=== PATIENT | female | born 1945 | race Caucasian/White ===

== ENCOUNTER 2019-11-12 03:29 | Outpatient (CLI) | payer MEDICARE, SELFPAY ==
--- NOTE | 2019-11-12 13:00 | NS.NUTBLAN_ITS ---
Thank you for consult for Natasha Davis for Medical Nutrition Therapy for Obesity as evidenced by BMI 33. Natasha reports gaining > 25 lbs in last year. She attributes this to her inability to cook, shop due to head injury last year. has been doing most of meal prep and they have started to increase their reliance on convenience foods. Diet Recall supports this. Natasha reports decreased activity as well but starting to tolerate more walking. Nutritional Diagnosis includes obesity, excessive energy intake, lack of physical activity. Intervention: educated Natasha on general Healthful Mediterranean Diet Nutrition Therapy ([facility] Nutrition Care Manual) as she enjoys cooking and now able to stand for longer periods of time and will start to take over meal prep/shopping. Provided Natasha written material and sample meal plan. Her motivation is high and I expect her to make positive changes to her health. Goal is for a 10% weight loss (20 lbs) every 90 days until reaches goal weight of 160 lbs. She is also asked to email creative services writer a 3 day meal record in 3 weeks so I can review her choices and adjust meal plan as needed. She is also dedicated to increase her activity, either in local pool or walking in house/outside. Plan: 1. Natahsa will be in charge of food prep/shopping and she will reduced her reliance on simple carbohydrates and increase intake of vegetables, beans, lean protein. 2. Natasha will exercise daily: 30 min on exercise bike, 30 min of walking 6 times a week 3. Weight loss goal is 20 lbs in 90 days - January 2020 4. follow up as needed
== END 2019-11-12 03:49 ==
PROVIDERS: PCP Nurse Practitioner; Visit Provider Nurse Practitioner
DX: E66.01 Morbid (severe) obesity due to excess calories (principal); Z71.3 Dietary counseling and surveillance
CPT/HCPCS: 97802

== ENCOUNTER → 2021-01-19 10:30 | Outpatient (BNVA) | payer MEDICARE, SELFPAY | PROVIDERS: PCP Nurse Practitioner; Referring Provider Nurse Practitioner; Visit Provider Physical Therapy Assistant | DX: Z12.11 Encounter for screening for malignant neoplasm of colon (principal); I10 Essential (primary) hypertension ==

== ENCOUNTER 2021-03-03 09:11 | Day surgery (SDC) | payer MEDICARE, SELFPAY ==
--- NOTE | 2021-03-02 21:08 | HPE_ITS ---
Date of service: 03/03/21 Time of Service: 09:00 Assessment and Plan Assessment and plan (1) Screening for colon cancer: Status: Acute Assessment and plan: Plan:Colonscopy Th ept understands that they need to do a bowel prep and the importance of hydration during this. The patient understands there is a theuraretical risk of renal failure. For healthy patients we use Miralax For anyone with renal concerns- GoLytely will be used. Plavix and coumadin will need to be held except in unusual circumstances. patient in A. Fib do not need to be bridged with Lovenox or on CVA prophylaxis. A baby ASA can be continued but full dose ASA needs to be stopped for 10 days prior to the procedure. A complete H & P is required with in 30 days of the procedure. MAC is used for the colonoscopy. Colonoscopy does not require antibiotics prophylaxis. Risks: Informed consent is obtained for the procedural (explained in simple layman's terms that the pt and/or family could understand) explaining risks vs benefits and alternatives to the procedure and consequences if we do not do the procedure and need/rational for the procedure. Risks include but are not limited to:bleeding, infection, perforation of colon. This would necessitate emergency surgery to repair the damage w/ possible ostomy; and other associated complications w/ the required surgery. Also complications of anesthesia including aspiration,MD/CVA/. I discussed with the patient would they could expect during the procedure, post procedure and recovery time and risks. The patient understands that they need to have a ride home after the procedure. The patient was given all this information in writing and expressed understanding. Thank you for allowing me to participate in the care of this Patient. A copy of the Endoscopy report will be forwarded to your office. If there are any questions or concerns please feel free to contact my office History of Present Illness Consults Consult date: 03/03/21 Narrative: 75 y/o female with history of HTN presents for colonoscopy screening pre-op. Her last screening was in 2010, which was unremarkable. She denies a family history of colon cancer. She denies any changes in bowel habits including bloody or black tarry stools, abdominal pain, diarrhea or constipation. She denies constitutional symptoms. Denies use of marijuana or any other recreational or illegal drugs. Pt notes about 2-3 yrs should had an episode of diarrhea that lasted for about a month adn than went away. No etiology for this could be defined. There was no travel/camping/she was told it was not diverticulitis. About a year ago she had a similar episode. Ever since that time her stools have changed. They have been more on the soft side. She is not had any weight loss. She is not had any bleeding. She denies chest pain, palpitations, dyspnea or dyspnea with exertion. She bikes and walks for 30-45 mins 4-5 times/wk. She denies prior history or family history of adverse reactions or complications with anesthesia. The patient denies any history of stroke, MD, seizures, bleeding or clotting disorders. She has implanted metal in her right knee and right hip. She did complete a bowel prep. The effluent is clear yellow. She denies any abdominal pain or cramping. She denies any nausea and vomiting. She denies any chest pain or shortness of breath. She denies any cough. She denies any fever or chills. She denies any Covid-like symptoms. All questions answered and she is stable for the procedure today. Review of Systems All systems reviewed & are unremarkable except as noted in HPI and below PFSH Medical History Concussion 2018May 02 Hyperlipidemia (~03/2019) Hypertension (~06/2017) Insomnia (~07/2017) Osteoarthritis (~11/2017) Primary basal cell carcinoma (BCC) (~11/2017) sees derm Dr Parekh [place] [facility] yearly Rotator cuff syndrome of left shoulder (~06/2017) resolved post surgery Surgical History (Updated 03/03/21 @ 11:03 by Johanna Quezada) H/O section History of knee replacement Right knee History of right hip replacement S/P shoulder surgery left shoulder August 2017 total replacement right shoulder February 2019 total replacement [facility] S/P tonsillectomy Family History Mother , age 90 Hypertension Stroke Father , age 77 Heart disease Hyperlipidemia Hypertension Sister Depression Heart disease Hyperlipidemia Hypertension Substance abuse Brother , age 48 Alcohol abuse Heart disease Hyperlipidemia Hypertension Son No problems noted. Maternal Grandfather No problems noted. Paternal Grandfather No problems noted. Maternal Grandmother , age 97 Heart disease Paternal Grandmother No problems noted. Social History Smoking/Tobacco Use Status: Former Tobacco Use tobacco type: cigarettes Quit Date: 09/30/69 Tobacco: How many years used: 5 Second Hand Exposure: Yes Smoking risk assessment performed?: Yes Alcohol Intake: current Alcohol Intake frequency: a few times a week Alcohol type: beer and wine Drug use: Never Substance use type: does not use Caregiver/Support person: No Household members: spouse Housing: house Communication Needs: None Do you need help understanding health information?: Rarely Pets and animals: Yes Pets and animals: cat(s), horse(s) and farm animals Sexually active: No Do you think of yourself as: straight/heterosexual Current gender identity: female What is your relationship status?: How often do you talk on the phone with friends or family?: three or more times per week How often do you get together with friends or relatives?: once per week How often do you attend sikhism or shinto services?: 4 or more times per year Do you belong to any clubs or organized social groups?: yes Panel score (0-1 are the most socially isolated patients): 4 What type of physical activity do you participate in: walking, bicycling, other Details: stationarey bike, hand weights and yoga Duration: 45-60 minutes/day Frequency: 5-6 times per week Yumiko/Anglican: Other Special yumiko needs: No Seatbelt use: always Helmet use: Yes Helmet use: always Drive intox or ride w/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 Do you feel safe at home: Yes Do you feel safe in your relationship?: Yes Meds Allergies and Home Medications Allergies Allergy/AdvReac Type Severity Reaction Status Date / Time hydromorphone Allergy Intermediate Skin Rash Verified 03/03/21 09:40 oxycodone AdvReac Intermediate [place]/Vomi Verified 03/03/21 09:40 ting Home Medications Medication Instructions Recorded Confirmed Type lisinopril 20 1 tab PO DAILY 07/28/19 03/03/21 History mg-hydrochlorothiazide 25 mg tablet aspirin 81 mg tablet,delayed 81 mg PO DAILY 01/19/21 03/03/21 History release cholecalciferol (vitamin D3) 10 10 mcg PO BID tab 01/19/21 03/03/21 History mcg (400 unit) tablet coenzyme Q10 10 mg capsule 10 mg PO ONCE 01/19/21 03/03/21 History glucosamine HCl 500 mg tablet 500 mg PO DAILY 01/19/21 03/03/21 History multivitamin 1 tab PO DAILY 01/19/21 03/03/21 History omega-3 fatty acids 1,000 mg 1,000 mg PO DAILY 01/19/21 03/03/21 History capsule vitamin B complex 1 cap PO DAILY 01/19/21 03/03/21 History bisacodyl 5 mg tablet,delayed 5 mg PO ONCE #4 tab 01/20/21 03/03/21 Rx release polyethylene glycol 3350 17 17 g PO ONCE #238 g 01/20/21 03/03/21 Rx gram/dose oral powder Exam Const General: cooperative, healthy appearing, comfortable, no acute distress, well developed and well groomed Nutritional Appearance: average body habitus and well nourished Orientation: alert, awake and oriented x3 HENMT Head: normal to inspection, normocephalic and atraumatic Ears: hearing grossly normal bilaterally and external ears normal General nose exam: external nose normal Face and sinus: normal facial exam and sinuses nontender Mouth: oral mucosae normal, lip normal, tongue normal and moist mucous membranes Teeth and gingiva: dentition normal Eyes General: appearance normal, both eyes and all related structures Conjunctivae: conjunctivae normal Sclera: sclerae normal Pupils: PERRL Neck Neck: normal visual inspection and full ROM Chest Chest: normal inspection of the chest Resp Effort & Inspection: normal respiratory effort, able to speak in complete sentences, no cough, no nasal flaring, not tachypneic and no use of accessory muscles Auscultation: clear to auscultation bilaterally, no rales, no rhonchi and no wheezes Cardio Jugular venous pressure: no JVD Rate: regular rate Rhythm: regular rhythm GI Inspection: normal to inspection, no edema and non-distended Palpation: soft, no masses, nontender and No ascites Auscultation: normal bowel sounds Neuro General: patient alert, patient oriented x3, oriented, gait normal, moves all extremities, no focal motor deficits and CN's II-XI intact bilaterally Cognition: normal cognition Speech: speech normal Gait: normal gait Motor: muscle tone normal throughout Psych Appearance: grossly normal and well kempt Mental Status: mental status grossly normal Speech and Movement: speech and movement normal Affect: normal affect COVID-19 Screening Have you, or household traveled for leisure in last 14 days?: No Had IN PERSON contact w/suspected or confirmed C-19 person: No
[2021-03-03 09:15] VITALS: BP 145/61; PULSE 67; RESP 18; TEMP 36.6; O2SAT 100
[2021-03-03] MEDS: Lactated Ringers 1,000 ML 80 ML IV (09:26)
--- NOTE | 2021-03-03 10:32 | ANES.PREOP_ITS ---
General Info Date of Service Date Performed: 03/03/21 Height: 5 ft 6 in Weight: 96.1 kg Body Mass Index (BMI): 34.2 Surgical Procedure: Operation Date: 03/03/21 09:50 Proposed Procedures Side Surgeon zac Galicia, Meds Allergies and Home Medications Allergies Allergy/AdvReac Type Severity Reaction Status Date / Time hydromorphone Allergy Intermediate Skin Rash Verified 03/03/21 09:40 oxycodone AdvReac Intermediate [place]/Vomi Verified 03/03/21 09:40 ting Home Medication Medication Instructions Recorded lisinopril 20 1 tab PO DAILY 07/28/19 mg-hydrochlorothiazide 25 mg tablet aspirin 81 mg tablet,delayed 81 mg PO DAILY 01/19/21 release cholecalciferol (vitamin D3) 10 10 mcg PO BID tab 01/19/21 mcg (400 unit) tablet coenzyme Q10 10 mg capsule 10 mg PO ONCE 01/19/21 glucosamine HCl 500 mg tablet 500 mg PO DAILY 01/19/21 multivitamin 1 tab PO DAILY 01/19/21 omega-3 fatty acids 1,000 mg 1,000 mg PO DAILY 01/19/21 capsule vitamin B complex 1 cap PO DAILY 01/19/21 bisacodyl 5 mg tablet,delayed 5 mg PO ONCE #4 tab 01/20/21 release polyethylene glycol 3350 17 17 g PO ONCE #238 g 01/20/21 gram/dose oral powder Current Visit Medications: Current Medications Generic Name Dose Route Start Last Admin Trade Name Freq PRN Reason Stop Dose Admin Hyoscyamine Sulfate 0.125 mg 03/02/21 21:07 Hyoscyamine 0.125 Mg Sl/Oral/Chew SL DIRECTED PRN Ringer's Solution 1,000 mls @ 80 mls/hr 03/03/21 06:00 03/03/21 09:26 IV 04/01/21 23:59 80 mls/hr INFUSION ADRIANA Administration IV Miscellaneous Supplies 1 each 03/03/21 06:00 Iv Access IV 04/01/21 23:59 DIRECTED ADRIANA Ondansetron HCl 4 mg 03/02/21 21:07 Ondansetron 4 Mg/2 Ml Vial IVP Q4H PRN PRN Nausea / Vomiting Sodium Chloride 0 ml 03/03/21 06:00 Normal Saline Flush 10 Ml Syr IV 04/01/21 23:59 PRN PRN Sodium Chloride 0 ml 03/03/21 06:00 Normal Saline 10 Ml Vial IJ 04/01/21 23:59 DIRECTED PRN Sterile Water 0 ml 03/03/21 06:00 Water,Injection,Sterile 10 Ml Vial IJ 04/01/21 23:59 DIRECTED PRN PFSH Active Problems Active Problems: Problem Status Onset Code Screening for colon cancer Z12.11 Decreased taste and smell R43.9 Marital dysfunction Z63.0 Low back pain M54.5 Hypertension ~06/2017 I10 Insomnia ~07/2017 G47.00 Osteoarthritis ~11/2017 M19.90 Primary basal cell carcinoma (BCC) ~11/2017 C44.91 Hyperlipidemia ~03/2019 E78.5 Medical History Medical History Concussion 2018May 02 Hyperlipidemia (~03/2019) Hypertension (~06/2017) Insomnia (~07/2017) Osteoarthritis (~11/2017) [facility] basal [facility] ([facility]11/2017[facility] left shoulder (~06/2017) resolved post surgery Surgical History Surgical History H/O section History of right hip replacement S/P shoulder surgery left shoulder August 2017 total replacement right shoulder February [address] [facility] S/P tonsillectomy Tobacco Smoking/Tobacco Use Status: Former Tobacco Use Tobacco: How many years used: 5 Passive smoking exposure: Yes Second hand exposure: Yes Alcohol Alcohol Intake: current Alcohol intake frequency: a few times a week Alcohol type: beer and wine Substance Use Substance use: Never Substance use type: does not use Vital Signs and Lab Results Vital Signs Most Recent Vital Signs in EMR: Most Recent Vital Signs Temp Pulse Resp BP Pulse Ox 36.6 C 67 18 145/61 H 100 03/03/21 09:15 03/03/21 09:15 03/03/21 09:15 03/03/21 09:15 03/03/21 09:15 Lab Results Blood Type / Crossmatch: No Data to Display Complete Blood Count: No Data to Display Complete Metabolic Panel: No Data to Display Liver Function Panel: No Data to Display Coagulation Panel: No Data to Display Cardiac Panel: No Data to Display Arterial Blood Gas: No Data to Display Venous Blood Gas: No Data to Display Pancreas Panel: No Data to Display Thyroid Panel: No Data to Display Infectious Disease: No Data to Display Blood Cultures: No Data to Display Toxicology Panel: No Data to Display Anesthesia Assessment and Plan Anesthesia History Personal History: No History of Anesthesia Complications Family History: No Family History of Anesthesia Complications Exercise Tolerance Exercise Tolerance: Metabolic Equivalents>4 Cardiac & Pulmonary Exam Cardiac Exam: Normal S1/S2 Heart Sounds Pulmonary Exam: Clear Bilateral Breath Sounds Airway Exam Known Difficult Airway: No Mallampati Class: 2 Mouth Opening: Normal (> 3cm) Thyromental Distance: Greater than 3 cm Neck Range of Motion: Full ROM Neck Circumference: Normal Teeth Condition: Normal Dentition ASA Classification ASA Score: ASA 2 Emergency Case?: No NPO Status NPO Status: NPO Clears >2 hours, Solids >8 hours Anesthesia Plan Resuscitation Status: Full Code Anesthesia Technique: General Anesthesia Airway Planned: Natural Airway Monitors Used: Standard Monitors Preoperative Comments:: here for screening colonoscopy.
[2021-03-03 10:44] VITALS: BMI 34.2
--- NOTE | 2021-03-03 11:41 | BOWEL_PTH ---
PATIENT: Natasha Davis LOC: [facility] U#:[id number] AGE/SX: 75/F ROOM: RE03/03/[address]: Fauzia Galicia : 1945 BED: DIS: 03/03/2021 SPEC #: [id number] RECD: 03/03/21 12:27 STATUS: ALBINO REMariposa #: [id number] SHAMA: 03/03/21 11:[address]: Fauzia Galicia DEPT: Surgical Specimen RECD BY: Estelle Arguelles ENTERED: 03/03/21 12:28 SP TYPE: Bowel OTHR DR: Stacey Corrales, PhD BASKET SORTER Tissues: 1 - BIOPSY BOWEL 2 - BIOPSY BOWEL 3 - BIOPSY BOWEL 4 - BIOPSY BOWEL Procedures: GROSS AND MICRO LEVEL 4 Comments: [id number]
[2021-03-03 11:53] VITALS: BP 106/47; PULSE 68; RESP 18; TEMP 36.4; O2SAT 97
--- NOTE | 2021-03-03 11:54 | W.ANESPOSTOP ---
Postoperative Evaluation Date, Time and Location Date Performed: 03/03/21 Time Performed: 11:55 Patient Location: Day Surgery Unit Vital Signs Most Recent Imported Vital Signs: Most Recent Vital Signs Temp Pulse Resp BP Pulse Ox 36.6 C 67 18 145/61 H 100 03/03/21 09:15 03/03/21 09:15 03/03/21 09:15 03/03/21 09:15 03/03/21 09:15 Most Recent Manually Entered Vital Signs: Adult Blood Pressure: 106/47 Heart Rate: 65 Respirations: 16 Oxygen Saturation (%): 99 Temperature (C): 36.4 C Pain Score (0-10 Scale): 0 Assessment Mental Status: Awake (Alert & Oriented to Patient Baseline) Airway and Respiratory Function: Patent airway with normal (patient baseline) respiratory exam Cardiovascular Function: Hemodynamically Stable Hydration Status: Adequately Hydrated Nausea & Vomiting: No Nausea or Vomiting Pain: Pt. Denies Any Pain Peripheral Nerve Block: Patient did not receive a nerve block
[2021-03-03 11:55] VITALS: BP 106/47; PULSE 65; RESP 16; TEMPC 36.4; O2SAT 99
--- NOTE | 2021-03-03 12:15 | ROE_ITS ---
Date of service: 03/03/21 Time of Service: 12:15 Operative Note Operative Note DATE OF PROCEDURE: 03/03/21 PRE-OP DIAGNOSIS: CRC screening/diarrhea POST-OP DIAGNOSIS: same PROCEDURE: w/ bx SURGEON: Fauzia Galicia ANESTHESIA TYPE: General:No Airway Refer to Anesthesia Record ESTIMATED BLOOD LOSS: 1 PATHOLOGY: other Patient was transported to: same day Patient's condition: stable Procedure Description: After informed consent was obtained the patient was taken to the procedure room and placed in a left decubitous position. Monitors were applied and a time out was done. The patients name, date of , procedure, allergies to medications and metal in their body was reviewed. The patient was then sedated. Once sedated and comfortable a rectal exam was done. External exam was normal. Internal exam revealed a normal sphincter tone and no palpable masses. The scope was then introduced and retrofelexed. No internal hemorrhoids were identified. The scope was then advanced to the cecum without difficulty. The TI and appendiceal orifice were identified. The prep was good. The scope was then slowly retracted over 10 minutes back into the rectum. There are no polyps visualized today. The mucosa and vascular pattern appear normal. She does have a few small scattered diverticuli confined to the sigmoid colon. There is no signs of active bleeding or infection.. The scope was removed and the patient was woken up and taken back to Same day surgery in stable condition. The patient tolerated the procedure well and there were no immediate complicati ons. Follow up: The patient the patient does not require any further screening colonoscopies unless they develop changes in bowel habits or other new gastrointestinal complaints.
--- NOTE | 2021-03-03 12:18 | PDOC.DSDIS_ITS ---
Discharge Plan Disposition Patient Disposition: HOME Condition: Good Discharge Details Reason For Visit: colon scope Attending Provider: Fauzia Galicia Primary Care Provider: Stacey Corrales Home Meds and New Rx's Prescriptions: Continued aspirin [Adult Aspirin Regimen] 81 mg tablet,delayed release (DR/EC) 81 mg PO DAILY RF: 0 multivitamin Tablet 1 tab PO DAILY RF: 0 omega-3 fatty acids [Fish Oil Concentrate] 1,000 mg capsule 1,000 mg PO DAILY RF: 0 glucosamine HCl 500 mg tablet 500 mg PO DAILY RF: 0 vitamin B complex Capsule 1 cap PO DAILY RF: 0 cholecalciferol (vitamin D3) 10 mcg (400 unit) tablet 10 mcg PO BID RF: 0 coenzyme Q10 [Co Q-10] 10 mg capsule 10 mg PO ONCE RF: 0 lisinopril-hydrochlorothiazide 20-25 mg tablet 1 tab PO DAILY RF: 0 Discontinued bisacodyl [Dulcolax (bisacodyl)] 5 mg tablet,delayed release (DR/EC) 5 mg PO ONCE Qty: 4 RF: 0 polyethylene glycol 3350 17 gram/dose powder 17 g PO ONCE Qty: 238 RF: 0 Discharge Instructions Additional Instructions: DSU Colonoscopy Post- Op Instructions Instructions for Everyone who is given Anesthesia: For your safety, please do the following for the next twenty-four (24) hours: *Do Not operate a motor vehicle (car, truck, motorcycle, etc.) *Do Not drink alcoholic beverages or use any recreational drugs for the first 24 hours or while taking pain medications. The medications in your body may have a reaction that can be dangerous. *Do Not make any important decisions or sign any important papers. Findings:mild diverticula. no signs of infections. no polyps Follow up: No further routine screening colonoscopies required. 1. No lifting over 20 pounds or strenuous activity for the first 24 hours after your procedure. After 24 hours there are no restrictions on your activity but you may feel fatigued for a few days. 2. After you arrive home you may have a light meal and return to your normal diet as you can tolerate it without feeling sick to your stomach. 3. You may have a bloated, gaseous feeling in your belly (abdomen) after a colonoscopy. Passing gas and belching will help. Walking or lying down on your left side with your knees flexed may relieve the discomfort. Call the office at [phone] (Office) or [phone] (Hospital) right away if you notice any of the following: a.Vomiting of blood or ?coffee ground stools?. b.Rectal bleeding 1Tbsp, blood clots or continuous bleeding. c.Severe belly (abdominal) pain. d.A hard distended belly (abdomen) and an inability to pass gas. 4. Please don?t expect to have a normal BM (bowel movement) for 2-3 days after your procedure. 5. If there are questions regarding the findings of your procedure, please contact your doctor 6. If you are unable to contact your doctor with a problem, contact the hospital at [phone]. 7. Continue all your regular medications unless directed otherwise. I understand the above instructions and have no questions. Signature of Patient or Adult Escort Name of Responsible Adult Escort Signature of Nurse Date/Time Activity:: see above Diet:: see above Discharge Orders Discharge Orders: Discharge Order (Routine); Ordered 03/02/21 Ordered By: Fauzia Galicia Discharge Data Discharge Date/Time-TO BE ENTERED AT DEPARTURE: 03/03/21 13:15 DS: Diagnosis Discharge Diagnosis (1) Diverticula of colon: Status: Acute
[2021-03-03 12:20] VITALS: BP 105/51; PULSE 57; RESP 16; TEMP 36; O2SAT 100
--- NOTE | 2021-03-03 22:41 | W.COLOREPORT ---
Date of service: 03/03/21 Time of Service: 10:00 Colonoscopy Report Date of procedure: 03/03/21 Pre-op diagnosis general: diarrhea/LLQ pain Post-op diagnosis procedure note: other (divertic) Surgeon: Fauzia Galicia Anesthesia Type: General:No Airway Estimated blood loss (mL): 0 Pathology: none sent Complications: None Disposition: same day Prep: Miralax/Dulcolax Retraction Time: 10 Procedure Description: After informed consent was obtained the patient was taken to the procedure room and placed in a left decubitous position. Monitors were applied and a time out was done. The patients name, date of , procedure, allergies to medications and metal in their body was reviewed. The patient was then sedated. Once sedated and comfortable a rectal exam was done. External exam was normal. Internal exam revealed a normal sphincter tone and no palpable masses. The scope was then introduced and retrofelexed. No internal hemorrhoids were identified. The scope was then advanced to the cecum without difficulty. The TI and appendiceal orifice were identified. The prep was good. The scope was then slowly retracted over 10 minutes back into the rectum. There are no polyps visualized today. The mucosa and vascular pattern appear normal. She does have a few small scattered diverticuli confined to the sigmoid colon. There is no signs of active bleeding or infection.. The scope was removed and the patient was woken up and taken back to Same day surgery in stable condition. The patient tolerated the procedure well and there were no immediate complications. Follow up: The patient the patient does not require any further screening colonoscopies unless they develop changes in bowel habits or other new gastrointestinal complaints.
== END 2021-03-03 13:15 | disposition home or self-care (01) ==
PROVIDERS: PCP Nurse Practitioner; Visit Provider Surgery
PROC: 0DJD8ZZ Inspection of Lower Intestinal Tract, Via Natural or Artificial Opening Endoscopic (ICD-10-PCS; CPT 45378; principal; 2021-03-03 09:45)
DX: Z12.11 Encounter for screening for malignant neoplasm of colon (principal); K57.30 Diverticulosis of large intestine without perforation or abscess without bleeding; R19.7 Diarrhea, unspecified
CPT/HCPCS: 45380; 88305; J2001

== ENCOUNTER → 2022-03-21 01:32 | Outpatient (CLI) | payer MEDICARE, SELFPAY ==
--- NOTE | 2022-03-21 07:30 | DI.MAMMO_ITS ---
Exam(s) MAMMO SCREENING EXAM: MAMMO SCREENING CLINICAL HISTORY: screening, Z12.39 TECHNIQUE: Bilateral full field digital CC and MLO mammographic images were obtained with 3D tomosyn thesis and utilizing computer aided detection (CAD). COMPARISON: Available for comparison. FINDINGS: Masses/Architectural Distortion: None seen. Microcalcifications: No suspicious pleomorphic-type are seen. Skin Thickening/Nipple Retraction: None. IMPRESSION: 1. No significant interval change with no specific features of malignancy noted. 2. Unless there is more urgent need, screening mammography is recommended, as per [place] guidelines. BI-RADS Category 1 - Negative Breast Density - Category B - Scattered areas of fibroglandular density Breast density category C or D implies that the patient has dense breast tissue. Dense breast tissue is very common and is not abnormal but dense breast tissue can make it harder to find cancer on a ma mmogram. Also, dense breast tissue may increase their breast cancer risk. This information about the result of the mammogram report was provided to the patient to raise their awareness. Use this report when you speak with the patient about their risks for breast cancer, which includes their family hist ory. At that time, you may recommend for more screening tests (Ultrasound or MRI) as they might be us eful based on their risk. A negative radiographic report should not delay biopsy if a dominant or clinically suspicious mass is present. Up to ten percent of cancers are not identified on mammography. A negative report may reinforce clinical impression. Adenosis and dense breasts may obscure an underlying neoplasm. False positive reports average 6 to 10%. Patient will receive a letter notifying them of these results.
== END ==
PROVIDERS: PCP Nurse Practitioner; Visit Provider Nurse Practitioner
DX: Z12.31 Encounter for screening mammogram for malignant neoplasm of breast (principal)
CPT/HCPCS: 77063; 77067

== ENCOUNTER 2022-05-15 01:32 | Outpatient (CLI) | payer MEDICARE, SELFPAY ==
[2022-05-15 08:22] LABS: Anion Gap 9.7 mmol/L (3-11); BUN 20 mg/dL (7-18); CO2 29.3 mmol/L (21.0-32.0); CREATININE 0.9 mg/dL (0.55-1.02); Calcium 9.4 mg/dL (8.5-10.1); Calculated LDL 122 mg/dL (<100); Chloride 94 mmol/L (98-107); Cholesterol 222 mg/dL (<200); Glucose 114 mg/dL (74-106); HDL Cholesterol 83 mg/dL (40-60); Sodium 133 mmol/L (136-145); Triglyceride 87 mg/dL (<150)
[2022-05-15 08:31] LABS: Hemoglobin A1C 5.8 % (<5.7)
== END 2022-05-15 01:33 | disposition home or self-care (01) ==
PROVIDERS: PCP Nurse Practitioner; Visit Provider Nurse Practitioner
DX: I10 Essential (primary) hypertension (principal); E78.2 Mixed hyperlipidemia; R73.09 Other abnormal glucose
CPT/HCPCS: 36415; 80048; 80061; 83036

== ENCOUNTER 2022-05-15 12:56 | Outpatient (REF) | payer MEDICARE, SELFPAY ==
--- NOTE | 2022-05-15 11:45 | PAPFT_PTH ---
PATIENT: Natasha Davis LOC: [facility] U#:[id number] AGE/SX: 76/F ROOM: RE05/15/[address]: Josette Claudio MD : [id number] BED: DIS: 05/15/2022 SPEC #: [id number] RECD: 05/15/22 14:44 STATUS: ALBINO REQ #: [id number] SHAMA: 05/15/22 11:[address]: Josette Claudio DEPT: [facility] Cytology RECD BY: Kari Villatoro ENTERED: 05/15/22 14:46 SP TYPE: PAPFT OTHR DR: Stacey Corrales, PhD FEATURE WRITER Tissues: 1 - CX/ENDOCX FOR PAP SMEARS Procedures: PAP THIN PREP/[facility]VM Screening Comments: [id number]
== END 2022-05-15 12:57 | disposition home or self-care (01) ==
LOC: LBN 12:56
PROVIDERS: PCP Nurse Practitioner; Visit Provider Obstetrics & Gynecology
DX: Z12.4 Encounter for screening for malignant neoplasm of cervix (principal)
CPT/HCPCS: 88142

== ENCOUNTER 2023-02-06 02:15 | Outpatient (CLI) | payer MEDICARE, SELFPAY ==
[2023-02-06 10:39] LABS: HCT 38.5 % (36.0-46.0); HGB 13.1 g/dL (11.2-15.7); MCH 29.8 pg (27.0-33.0); MCV 88 fL (80-95); MPV 8.2 fL (8.0-11.0); Platelet Count 251 10^3/uL (130-400); RBC 4.39 10^6/uL (3.93-5.22); RDW 12.3 % (11.7-14.6); RDW-SD 39.2 fL
[2023-02-06 11:27] LABS: ALT 32 U/L (14-59); AST 18 U/L (15-37); Albumin 3.6 g/dL (3.4-5.0); Alkaline Phosphatase 94 U/L (46-116); Anion Gap 8.7 mmol/L (3-11); BUN 18 mg/dL (7-18); Bilirubin, Total 0.3 mg/dL (0.2-1.0); CO2 29.3 mmol/L (21.0-32.0); CREATININE 0.9 mg/dL (0.55-1.02); Calcium 9.1 mg/dL (8.5-10.1); Calculated LDL 113 mg/dL (<100); Chloride 102 mmol/L (98-107); Cholesterol 207 mg/dL (<200); Estimated GFR 66.26 (mL/min/1.73m2); Glucose 100 mg/dL (74-106); HDL Cholesterol 80 mg/dL (40-60); Potassium 3.9 mmol/L (3.5-5.1); Sodium 140 mmol/L (136-145); TSH (W/Ref FT4) 1.18 uIU/mL (0.36-3.74); Total Protein 7.6 g/dL (6.4-8.2); Triglyceride 70 mg/dL (<150)
[2023-02-06 11:57] LABS: Hemoglobin A1C 5.5 % (<5.7)
== END 2023-02-06 02:16 | disposition home or self-care (01) ==
LOC: LBO 02:15
PROVIDERS: PCP Nurse Practitioner Family; Visit Provider Nurse Practitioner Family
DX: E78.5 Hyperlipidemia, unspecified (principal); E78.2 Mixed hyperlipidemia; I10 Essential (primary) hypertension; R73.09 Other abnormal glucose; G47.00 Insomnia, unspecified
CPT/HCPCS: 36415; 80053; 80061; 85027; 83036; 84443

== ENCOUNTER 2023-03-22 00:49 | Outpatient (CLI) | payer MEDICARE, SELFPAY ==
--- NOTE | 2023-03-22 07:00 | DI.MAMMO_ITS ---
Exam(s) MAMMO SCREENING EXAM: MAMMO SCREENING CLINICAL HISTORY: screening, Z12.39 TECHNIQUE: Bilateral full field digital CC and MLO mammographic images were obtained with 3D tomosyn thesis and utilizing computer aided detection (CAD). COMPARISON: Available for comparison. FINDINGS: Masses/Architectural Distortion: None seen. Microcalcifications: No suspicious pleomorphic-type are seen. Skin Thickening/Nipple Retraction: None. IMPRESSION: 1. No significant interval change with no specific features of malignancy noted. 2. Unless there is more urgent need, screening mammography is recommended, as per [employer] [employer] guidelines. BI-RADS Category 1 - Negative Breast Density - Category B - Scattered areas of fibroglandular density Breast density category C or D implies that the patient has dense breast tissue. Dense breast tissue is very common and is not abnormal but dense breast tissue can make it harder to find cancer on a ma mmogram. Also, dense breast tissue may increase their breast cancer risk. This information about the result of the mammogram report was provided to the patient to raise their awareness. Use this report when you speak with the patient about their risks for breast cancer, which includes their family hist ory. At that time, you may recommend for more screening tests (Ultrasound or MRI) as they might be us eful based on their risk. A negative radiographic report should not delay biopsy if a dominant or clinically suspicious mass is present. Up to ten percent of cancers are not identified on mammography. A negative report may reinforce clinical impression. Adenosis and dense breasts may obscure an underlying neoplasm. False positive reports average 6 to 10%. Patient will receive a letter notifying them of these results.
== END 2023-03-22 01:09 ==
LOC: DI 00:49
PROVIDERS: PCP Nurse Practitioner Family; Visit Provider Nurse Practitioner Family
DX: Z12.31 Encounter for screening mammogram for malignant neoplasm of breast (principal)
CPT/HCPCS: 77063; 77067

== ENCOUNTER → 2024-03-23 02:11 | Outpatient (CLI) | payer MEDICARE, SELFPAY ==
--- NOTE | 2024-03-23 06:30 | DI.MAMMO_ITS ---
Exam(s) MAMMO SCREENING EXAM: MAMMO SCREENING CLINICAL HISTORY: screening,z12.39 TECHNIQUE: Bilateral full field digital CC and MLO mammographic images were obtained with 3D tomosyn thesis and utilizing computer aided detection (CAD). COMPARISON: Available for comparison. FINDINGS: Masses/Architectural Distortion: None seen. Microcalcifications: No suspicious pleomorphic-type are seen. Skin Thickening/Nipple Retraction: None. IMPRESSION: 1. No significant interval change with no specific features of malignancy noted. 2. Unless there is more urgent need, screening mammography is recommended, as per [place] [employer] guidelines. BI-RADS Category 1 - Negative Breast Density - Category B - Scattered areas of fibroglandular density Breast density category C or D implies that the patient has dense breast tissue. Dense breast tissue is very common and is not abnormal but dense breast tissue can make it harder to find cancer on a ma mmogram. Also, dense breast tissue may increase their breast cancer risk. This information about the result of the mammogram report was provided to the patient to raise their awareness. Use this report when you speak with the patient about their risks for breast cancer, which includes their family hist ory. At that time, you may recommend for more screening tests (Ultrasound or MRI) as they might be us eful based on their risk. A negative radiographic report should not delay biopsy if a dominant or clinically suspicious mass is present. Up to ten percent of cancers are not identified on mammography. A negative report may reinforce clinical impression. Adenosis and dense breasts may obscure an underlying neoplasm. False positive reports average 6 to 10%. Patient will receive a letter notifying them of these results.
== END ==
PROVIDERS: PCP Nurse Practitioner Family; Visit Provider Nurse Practitioner Family
DX: Z12.31 Encounter for screening mammogram for malignant neoplasm of breast (principal)
CPT/HCPCS: 77063; 77067

== ENCOUNTER 2024-08-14 11:47 | Outpatient (CLI) | payer MEDICARE, SELFPAY ==
--- NOTE | 2024-08-14 10:15 | DI.RAD_ITS ---
Exam(s) XR KNEE LT 3V AP,LAT,DANIEL EXAM: XR KNEE LT 3V AP,LAT,DANIEL CLINICAL HISTORY: Fall with injury, W19.XXXA. TECHNIQUE: 2D digital imaging was performed. Three views. COMPARISON: No exams were available for comparison FINDINGS: BONES: No acute fracture is present. No bony destructive lesion is seen. JOINTS: The knee is normally aligned. No joint effusion is seen. Severe narrowing of the medial fem oral tibial and patellofemoral joint spaces with periarticular spurring. Spurring is also noted at t he lateral femoral tibial joint and tibial spines. SOFT TISSUE: Anterior swelling. IMPRESSION: Advanced degenerative changes. No acute abnormality DATA REPOSITORY: RADIATION DOSE DELIVERED:
== END 2024-08-14 12:07 ==
LOC: DI 11:49
PROVIDERS: PCP Nurse Practitioner Family; Visit Provider Nurse Practitioner Family
DX: W19.XXXA Unspecified fall, initial encounter (principal); M17.12 Unilateral primary osteoarthritis, left knee
CPT/HCPCS: 73562

== ENCOUNTER → 2024-09-14 13:27 | Outpatient (BNVA) | payer MEDICARE, SELFPAY | PROVIDERS: PCP Nurse Practitioner Family; Referring Provider Nurse Practitioner Family | DX: M17.12 Unilateral primary osteoarthritis, left knee (principal); W19.XXXA Unspecified fall, initial encounter | CPT/HCPCS: 20610; 99203; J1010 ==

== ENCOUNTER 2025-03-09 01:42 | Outpatient (CLI) | payer MEDICARE, SELFPAY ==
--- NOTE | 2025-03-09 06:15 | DI.DEXA_ITS ---
Exam(s) XR DEXA BONE DENSITY W/WO NEO EXAM: XR DEXA BONE DENSITY W/WO NEO CLINICAL HISTORY: screening,menopausal disorder,n95.9 TECHNIQUE: Routine DEXA evaluation of the lumbar spine, hip, or forearm. COMPARISON: No exams were available for comparison FINDINGS: Performed on a Hologic unit. Lateral image: No compression fracture evident. Lumbar Spine total T-score: 3.3. This is in the normal range. Hip total T-score:0.5. This is normal range. Independent reading at the level of the femoral neck yields T-score of 0.9. This is normal range. Forearm total T-score: -0.7. This is normal range IMPRESSION: Bone mineral density measures in the normal range. Fracture risk is low. Note: Any spine fracture indicates 5x risk for subsequent spine fracture and 2x risk for subsequent h ip fracture. World Health Organization criteria for BMD interpretation classify patients: Normal...... T- Score at or above -1.0 Osteopenic... T- Score between -1.0 and -2.5 Osteoporosis... T-Score at or below -2.5
== END 2025-03-09 02:02 ==
LOC: DI 01:42
PROVIDERS: PCP Nurse Practitioner Family; Visit Provider Nurse Practitioner Family
DX: N95.9 Unspecified menopausal and perimenopausal disorder (principal)
CPT/HCPCS: 77080